=== PATIENT | female | born 1980 | race Caucasian/White ===

== ENCOUNTER 2022-05-12 09:42 | Outpatient (CLI) | payer OTHER, SELFPAY | END 2022-05-12 09:43 | disposition home or self-care (01) | LOC: ANHSURGERY 09:48 | PROVIDERS: PCP Registered Nurse; Visit Provider Obstetrics & Gynecology | DX: N94.6 Dysmenorrhea, unspecified (principal); Z01.818 Encounter for other preprocedural examination | CPT/HCPCS: 36415; 86850; 86900; 86901 ==

== ENCOUNTER 2022-05-20 01:25 | Day surgery (SDC) | payer OTHER, SELFPAY ==
[2022-05-11 09:27] VITALS: BMI 31.2
--- NOTE | 2022-05-11 09:36 | PC.NURSE ---
Report to the Outpatient Waiting Room, entrance under the green pavilion located off [facility], at time _0600_ on date _[id number]_. Planned Procedure Time: _0730_. Time changes happen often and if your time is changed the preop area will call you the afternoon before. - You and your visitor will be asked to self-screen and do not enter if you have any COVID symptoms. - Only one visitor is requested with a max of two and NO children visitors are allowed at this time. - The patient visitor may be requested to leave or wait in car when not with patient due to distancing restrictions. - A mask is optional within the hospital. Patients may have clear liquids (water, carbonated beverages, clear teas, apple juice) until 3 hours prior to surgery with a maximum of 20 ounces. - No food from midnight until time of surgery Take the following medications with a SIP of water the morning of surgery: __None Medications to discontinue per physician None Date to take last dose Please no make-up, nail chadian, hairspray, perfume, deodorant, or body powder the day of surgery. No jewelry (including any body piercings) or valuables the day of surgery, leave them at home. Please take a shower or bath the night before, or the morning of, surgery with an antibacterial soap. Wear comfortable, loose fitting clothing. - Jewelry must be removed prior to entering the operating room. Rings and piercings that are not removed may be cut off. - The hospital will not accept responsibility for valuables. - Please leave all valuables, including medications, at home the day of surgery. If you are going home after surgery, a licensed class a regional drivers must drive you home. - NO public transportation without another adult if you receive anesthesia. - We recommend that an adult stay with you for 24 hours following discharge. - We also recommend that you do not drive, make important decision, drink alcoholic beverages, or take any drugs that were not prescribed by your health care provider for at least 24 hours after your discharge time. Follow any additional instructions given to you from your surgeon. If you or anyone in your household have experienced Covid symptoms in the past week, please notify your surgeon or the nurse liaison at the phone number below for possible testing. Telephone instructions given to _Patient___and asked if any additional questions and then verbalized understanding. Patient advised to call surgeon office or pre surgery nurse liaison [phone] if any additional questions.
[2022-05-20] VITALS (17 sets, daily range): BP systolic 113–133; BP diastolic 71–90; PULSE 83–128; RESP 15–20; TEMP 36.3–37.3; O2SAT 96–100
--- NOTE | ~2022-05-20 | XR_ITS ---
EXAMINATION: XR cystogram 1-2V DATE: 05/20/2022 11:11 INDICATION: Bladder injury. TECHNIQUE: Water-soluble contrast was gravity-infused through the patient's Rocha catheter. Multiple fluoroscopic images were obtained. Fluoroscopy exposure time was 0.3 minutes. The total number of mariel ges was 8. COMPARISON: None. FINDINGS: The bladder is normal in morphology. No extraluminal leakage of contrast. No ureteral reflu x. Surgical clips overlie right abdomen. IMPRESSION: 1. Normal cystogram. Reviewed, dictated and finalized at location A. IGN EXCHANGE DEALER IMPRESSION: 1. Normal cystogram.
[2022-05-20] MEDS: LACTATED RINGERS 1,000 ML 30 ML IV CONT ×2 (06:30→09:52)
[2022-05-20] MEDS: ACETAMINOPHEN 500 MG TABLET 1000 MG PO (06:31)
[2022-05-20] MEDS: KETOROLAC 15 MG/ML VIAL (*BKC) IV PUSH (06:40)
--- NOTE | 2022-05-20 06:49 | WPDANESEPPF ---
Anes - Initial Pre Proc Eval Procedure: Operation Date: 05/20/22 07:30 Proposed Procedures p Total Laparoscopic Hysterectomy, Bilateral Salpingectomy - Billy Stanton MD Date/Time: 05/20/22 06:49 Surgeon: Billy Stanton MD Pre Op Diagnosis: dysmenorrhea Patient Data Age: 42 Gender: F Height: 1.55 m Weight: 75 kg Allergies Allergy/AdvReac Type Severity Reaction Status Date / Time No Known Allergies Allergy Unverified 05/11/22 09:26 Home Medications Medication Instructions Recorded Confirmed Type cyclobenzaprine 10 mg tablet 10 mg PO HS 05/11/22 05/20/22 History Patient hx anesthesia problems: none Family hx anesthesia problems: none Results Review: All pre-operative results and documents have been reviewed as part of the pre-operative evaluation. REPLACED BY [facility] Past Medical History Medical History (Updated 05/20/22 @ 06:49 by Miller Tompkins MD) Obesity Surgical History Surgical History (Updated 05/20/22 @ 06:50 by Miller Tompkins MD) History of appendectomy Hx of tonsillectomy Social History Social History Smoking packs per day: 0.5 Smoking cigarettes per day: 10.0 Years smoked: 25 Smoking pack-years: 12.50 Smoking status: Never smoker Tobacco type: cigarettes Alcohol intake: current Drinks per week: 5 Living arrangements: with family Spiritual care concerns: No Anes - Eval Final PreProcedure Day of Procedure 05/20/22 06:49 Patient weight: obese Heart: regular rate and rhythm Lungs: clear to auscultation Airway: Mallampati scale class II Neurological: alert and oriented Last oral intake: >/= 8 hours ASA classification: II Emergent: no Anesthetic plan: proceed Anesthesia type and monitoring: general ETT and standard monitoring Results Review: All pre-operative results and documents have been reviewed as part of the pre-operative evaluation. Informed Consent: The patient's anesthetic plan and its attendant risks and benefits were discussed with the patient/family/POA. Questions were solicited and answers provided to the satisfaction of the patient/family/POA.
--- NOTE | 2022-05-20 07:12 | WPDHPUPDATE1 ---
History and Physical Update Update Date/Time: 05/20/22 07:12 History and Physical has been reviewed, including an updated exam of the patient. There are NO changes in the patient's condition. Risks, benefits, and alternatives have been discussed and questions answered. Patient agrees to proceed with procedure.
[2022-05-20] MEDS: ceFAZolin 2 GM/D5W 50 ML 2 GM/50 ML BAG IVPB (07:27)
[2022-05-20] MEDS: ceFAZolin SODIUM 1 GM VIAL IV PUSH (08:29)
--- NOTE | 2022-05-20 09:50 | W.PM.PROC2 ---
Procedure Note - Detailed Date of Procedure 05/20/22 Pre-op Diagnosis dysmenorrhea Post-op Diagnosis Same Procedure Performed Total laparoscopic hysterectomyAnd bilateral salpingectomy Surgeon Billy Stanton MD Anesthesia General Indications severe dysmenorrhea Findings right hydrosalpinx, adhesions throughout the pelvis between pericolic fat various pelvic structures. Thickly scarred peritoneum of the posterior cul-de-sac Description of Procedure This patient was taken to the operating room. She was prepped and draped in the dorsal lithotomy position after induction of general anesthesia. The uterine manipulator and Nataly cup were placed. This was done with a speculum and tenaculum. The speculum was placed. The cervix was grasped with a tenaculum. The stay sutures were placed at 3 and 9:00 a.m.. The stay sutures of 0 Vicryl were brought through the appropriately sized Nataly cup. The tip of the INDER manipulator was placed in the intrauterine cavity. The cup was slid into place around the cervix and into the fornices. It was locked into place. The sutures were then wrapped around the handle and tied under tension. A 5 mm skin incision was made in the left upper quadrant the abdomen. A 5 mm trocar was inserted into the intrauterine cavity under direct visualization of the scope. Pneumoperitoneum was achieved. A left lower quadrant 11 mm incision was made with scalpel. An 11 mm trocar was inserted into the anterior abdominal cavity under direct visualization the scope. A 5 mm infraumbilical incision was made with a scalpel and a 5 mm trocar was inserted the intra-abdominal cavity under direct visualization of the scope. Bilateral ureteral lysis was performed. This was done from the pelvic brim down to the uterine artery. This was done with careful dissection using sharp and blunt dissection. The fallopian tubes were removed bilaterally. The mesosalpinx around the fallopian tubes were cauterized transected with LigaSure cautery. This was done in a bilateral fashion from the ovary to the uterine cornua. The fallopian tube was transected at the uterine cornu and amputated. The tube was taken out the left lower quadrant trocar site. In a stepwise fashion along the lateral aspects of the uterus the round ligament and broad ligaments were cauterized transected down to the level of the uterine arteries. A bladder flap was created in the bladder was moved distally to the end of the cervix and over the Nataly cup. The bilateral uterine arteries were cauterized and transected. Colpotomy was then performed. In a circumferential fashion the vagina was transected using unipolar cautery. The incision was made down on the Nataly cup. The uterus and cervix were taken out through the vagina. A pneumo occluder was placed in the vagina. The vaginal cuff was closed with a 0 V lock suture in a running fashion. The pelvis was irrigated with copious amounts antibiotic irrigation. The ureters were again examined and found to be intact and flowing freely under the uterine arteries into the bladder. The bladder was intact. It was examined directly. The vagina was irrigated with Betadine solution after removal of the Pneumo occluder. The patient was taken to recovery room. She was stable condition. Sponge lap and needle counts were correct x2. Estimated Blood Loss 75 Drains Yes Packing No Pathology Yes Complications No immediate complications Condition Stable Disposition Floor
--- NOTE | 2022-05-20 09:54 | SUR.OPER ---
When taking down the drapes, leo catheter fell out on the floor. Catheter was inspected by dental laboratory technician apprentice and noticed to have a hole. Dr. Stanton was called to the room. Dr. Stanton advised to place another catheter. Patient okay to be moved to PACU at this time.
[2022-05-20] MEDS: fentaNYL CITRATE INJ (*CRX) 100 MCG/2 ML VIAL 25 MCG IV PUSH ×8 (10:08→10:33)
--- NOTE | 2022-05-20 10:48 | SUR.PHASEI ---
1048- Patient to Radiology department for x-ray [address] Stanton's orders via bed on transport monitor.
--- NOTE | 2022-05-20 11:12 | SUR.PHASEI ---
1110 - received pt back from radiology.
[2022-05-20] MEDS: HYDROmorphone HCL INJ (*CRX) 1 MG/ML SYR 0.5 MG IV PUSH ×2 (11:29→11:36)
--- NOTE | 2022-05-20 12:18 | PC.NURSE ---
PT arrived on unit via bed accompanied by spouse and taken to room 289. PT introductions made and plan of care discussed per post op billing and insurance coordinator surgery, pain management, daily care activities. No barriers to learning identified. PT received such instructions per one to one discussion and demonstrations this shift. PT verbalized understanding of such care.
[2022-05-20] MEDS: HYDROcodone/acetaminophen (*CRX) 10-325 MG TABLET 1 TAB PO ×4 (12:50→22:17)
[2022-05-20] MEDS: DEXTROSE 5%/0.45% SOD CHL 1,000 ML 125 ML IV CONT (12:54)
[2022-05-20] MEDS: KETOROLAC 30 MG/ML VIAL (*BKC) IV PUSH ×2 (12:55→19:06)
[2022-05-20] MEDS: CYCLOBENZAPRINE HCL 10 MG TABLET PO (20:41)
[2022-05-21 00:30] VITALS: BP 114/70; PULSE 84; RESP 18; TEMP 36.9; O2SAT 95
[2022-05-21] MEDS: HYDROcodone/acetaminophen (*CRX) 5-325 MG TABLET 1 TAB PO ×2 (04:38→07:39)
[2022-05-21 04:40] VITALS: BP 107/69; PULSE 110; RESP 18; TEMP 36.8; O2SAT 99
[2022-05-21 07:30] VITALS: PULSE 110; RESP 18; O2SAT 99
[2022-05-21] MEDS: IBUPROFEN 600 MG TABLET PO (07:38)
[2022-05-21 08:00] VITALS: BP 110/63; PULSE 116; RESP 18; TEMP 36.9; O2SAT 100
--- NOTE | 2022-05-21 10:16 | PM.GYNPNOP ---
MIRROR FRAMER - A/P Postoperative Procedures: Procedures Operation Date: 05/20/22 07:30 Actual Procedure Side Surgeon p Total Laparoscopic Hysterectomy, Bilateral Salpingectomy Bilateral RShaunna Stanton MD Postoperative day: 1 Postoperative status: doing well Postoperative plan: see orders Time Spent With Patient Time: Total time spent is greater than 50% in coordination of care (as documented) at patient's floor/unit and/or counseling patient: Time with patient: less than 15 minutes MIRROR FRAMER- PN:Subj Post-Op Subjective Date/time seen: 05/21/22 10:16 Subjective: patient reports feeling better, patient has no complaints and pain is well controlled Exam Const: General: healthy appearing, comfortable and no acute distress Resp: Auscultation: clear to auscultation bilaterally, no rales, no rhonchi and no wheezes Cardio: Rate: regular rate Heart sounds: no click, no murmurs and no rubs GI: Inspection: non-distended Auscultation: normal bowel sounds Extrem: General: normal to inspection, no pedal edema and no calf tenderness MIRROR FRAMER - PN: Obj Data Vital Signs Vital Signs: Vital Signs - 24 hr 05/20/22 10:20 05/20/22 10:30 05/20/22 10:40 Temperature 97.8 F Pulse Rate 83 95 98 Respiratory Rate 15 20 18 Blood Pressure 121/81 118/77 121/76 Pulse Oximetry 96 97 98 Oxygen Delivery Room Air Room Air Room Air 05/20/22 11:10 05/20/22 11:25 05/20/22 11:40 Temperature 98.6 F Pulse Rate 92 97 106 H Respiratory Rate 16 20 20 Blood Pressure 124/80 126/86 113/71 Pulse Oximetry 97 97 98 Oxygen Delivery Room Air Room Air Room Air 05/20/22 11:45 05/20/22 11:55 05/20/22 12:05 Temperature Pulse Rate 96 106 H 101 H Respiratory Rate 18 18 16 Blood Pressure 118/85 126/81 115/81 Pulse Oximetry 98 98 100 Oxygen Delivery Room Air Room Air Room Air 05/20/22 12:15 05/20/22 12:30 05/20/22 12:18 Temperature 99.1 F Pulse Rate 108 H 112 H 112 H Respiratory Rate 18 16 16 Blood Pressure 116/80 127/73 Pulse Oximetry 100 99 99 Oxygen Delivery Room Air Room Air 05/20/22 19:15 05/20/22 19:15 05/21/22 00:30 Temperature 98.7 F 98.5 F Pulse Rate 128 H 84 Respiratory Rate 16 18 Blood Pressure 117/73 114/70 Pulse Oximetry 97 95 Oxygen Delivery Room Air 05/21/22 04:40 05/21/22 04:40 05/21/22 07:30 Temperature 98.3 F Pulse Rate 110 H 110 H Respiratory Rate 18 18 Blood Pressure 107/69 Pulse Oximetry 99 99 Oxygen Delivery Room Air Room Air 05/21/22 08:00 Temperature 98.5 F Pulse Rate 116 H Respiratory Rate 18 Blood Pressure 110/63 Pulse Oximetry 100 Oxygen Delivery Intake/Output Intake/Output: Intake & Output 05/18/22 05/19/22 05/20/22 05/21/22 23:59 23:59 23:59 23:59 Intake Total 2900 950 Output Total 2400 1300 Balance 500 -350 Meds/Results Medications: Active Medications Generic Name Dose Route Start Last Admin Trade Name Freq PRN Reason Stop Dose Admin Hydrocodone Bitart/Acetaminophen 1 tab 05/20/22 12:17 05/21/22 07:39 Hydrocodone/Acetaminophen (*Crx) 5-325 Mg Tablet PO 1 tab Q3H PRN Administration Pain Rated 5 or Less Hydrocodone Bitart/Acetaminophen 1 tab 05/20/22 12:17 05/20/22 22:17 Hydrocodone/Acetaminophen (*Crx) 10-325 Mg Tablet PO 1 tab Q3H PRN Administration Pain Rated 6 or Greater Cyclobenzaprine HCl 10 mg 05/20/22 18:19 05/20/22 20:41 Cyclobenzaprine Hcl 10 Mg Tablet PO 10 mg QHS PRN Administration Muscle Spasm Dextrose/Sodium Chloride 1,000 mls @ 125 mls/hr 05/20/22 12:17 05/20/22 20:43 Dextrose 5% Sodium Chloride 0.45% IV CONT 125 mls/hr .Q8H EDMAR Infusion Ibuprofen 600 mg 05/20/22 12:17 05/21/22 07:38 Ibuprofen 600 Mg Tablet PO 600 mg Q6H PRN Administration Cramping Ketorolac Tromethamine 30 mg 05/20/22 12:17 05/20/22 19:06 Ketorolac 30 Mg/Ml Vial (*Bkc) IV PUSH 05/25/22 12:16 30 mg Q6H PRN Administration Pain Rated 4-6 Naloxone HCl 0.1 mg 05/20/22 12:17
--- NOTE | 2022-06-19 02:00 | PM.DS ---
DS: Admitting Diagnosis Discharge Date 05/21/22 Admitting Diagnosis menorrhagia DS: Discharge Diagnosis Discharge Diagnosis (1) Menorrhagia: Code(s): N92.0 - Excessive and frequent menstruation with regular cycle Status: Acute DS: Summary Hospital Course Hospital Course: admitted for hysterectomy for menorrhagia and uterine fibroids. postoperative course was unremarkable. She was ambulating, tolerating p.o., voiding at appropriate times. She was afebrile her pain was well controlled throughout her stay. Time Spent with Patient Time attestation: Total time spent providing and/or coordinating discharge services: DS: Data Data Completed and Pending Completed studies during hospitalization: Pending at discharge 05/20/22 09:24 Surgical [PTH] Routine Discharge Plan Discharge Patient Disposition: Home, Self-Care Patient Instructions: Laparoscopic Hysterectomy (DC) Stand Alone Forms: General Discharge Instructions Discharge Medications: New hydrocodone-acetaminophen 5-325 mg tablet 1 tablet PO Q4H PRN (Reason: pain) Qty: 25 0RF Continued cyclobenzaprine 10 mg Tablet 10 mg PO HS
== END 2022-05-21 10:55 | disposition home or self-care (01) ==
LOC: ANHSURGERY 06:02 → ANHOB2 12:32
PROVIDERS: PCP Registered Nurse; Visit Provider Obstetrics & Gynecology
PROC: 0UT9FZZ Resection of Uterus, Via Natural or Artificial Opening With Percutaneous Endoscopic Assistance (ICD-10-PCS; CPT 58571; principal; 2022-05-20 07:30)
DX: N70.11 Chronic salpingitis (principal); N73.6 Female pelvic peritoneal adhesions (postinfective); D25.1 Intramural leiomyoma of uterus; D25.2 Subserosal leiomyoma of uterus; N94.6 Dysmenorrhea, unspecified; N83.8 Other noninflammatory disorders of ovary, fallopian tube and broad ligament; E66.9 Obesity, unspecified; Z68.32 Body mass index [BMI] 32.0-32.9, adult
CPT/HCPCS: 58571; 36415; 51600; 74430; 86850; 86900; 86901; 88307; 88342; 99199; A9270; J0330; J0690; J1100; J1170; J1885; J2250; J2405; J2704; J2710; J3010; J7030; J7120; Q9967